=== PATIENT | female | born 1990 | race African-American/Black ===

== ENCOUNTER 2023-08-02 18:10 | Emergency (ER) | payer BC, OTHER ==
[~2023-08-02] VITALS: Ht 165.1 cm; Wt 91.0 kg
[2023-08-02 18:36] VITALS: BP 144/88; PULSE 91; RESP 18; TEMP 98.7; O2SAT 99
[2023-08-02 19:10] LABS: HEMATOCRIT. 32.9 % (36.0-48.0); HEMOGLOBIN. 10.4 g/dL (12.0-16.0); MEAN CORPUSCULAR HEMOGLOBIN 24.1 pg (28.0-32.0); MEAN CORPUSCULAR HGB CONC 31.7 g/dL (31.0-37.0); MEAN CORPUSCULAR VOLUME 76.2 fL (81.0-99.0); MEAN PLATELET VOLUME 7.4 fl (7.4-10.4); PLATELET 399 x1000/uL (130-400); RED BLOOD CELL COUNT 4.31 mill/uL (4.2-5.4); RED CELL DISTRIBUTION WIDTH 19.2 % (11.6-14.6); WHITE BLOOD COUNT 6.9 x1000/uL (4.5-11.0)
[2023-08-02 19:11] LABS: DIFFERENTIAL COMMENT 1
[2023-08-02 19:21] LABS: CHLORIDE 109 mEq/L (98-107); INDEX HEMOLYSI 1 (1-3); INDEX ICTERIC 1 (1-4); INDEX LIPEMIC 1 (1-3); POTASSIUM 3.5 mEq/L (3.5-5.1); SODIUM 137 mEq/L (136-145)
[2023-08-02 19:29] LABS: ALANINE AMINOTRANSFERASE 30 IU/L (13-61); ALBUMIN 3.4 g/dL (3.4-5.0); ASPARTATE AMINOTRANSFERASE 19 IU/L (15-37); BILIRUBIN TOTAL 0.4 mg/dL (0.1-1.0); CALCIUM 8.3 mg/dL (8.5-10.1); CARBON DIOXIDE 23 mEq/L (21-32); CREATININE 0.7 mg/dL (0.6-1.3); GLUCOSE 141 mg/dL (70-105); PROTEIN TOTAL 7.6 g/dL (6.0-8.3); UREA NITROGEN BLOOD 7 mg/dL (7-21)
[2023-08-02 20:44] LABS: PLATELET ESTIMATE NORMAL
[2023-08-02 20:45] LABS: ANISOCYTOSIS 1+; HYPOCHROMASIA 1+; MICROCYTOSIS 1+
== END 2023-08-02 20:47 | disposition home or self-care (01) ==
LOC: ER 18:10
DX: Q89.9 Congenital malformation, unspecified (principal); R73.9 Hyperglycemia, unspecified
CPT/HCPCS: 36415; 80053; 85025; 99283

== ENCOUNTER 2024-11-02 08:52 | Emergency (ER) | payer OTHER ==
[~2024-11-02] VITALS: Ht 165.1 cm; Wt 91.0 kg
[2024-11-02 08:56] VITALS: O2SAT 100
[2024-11-02] MEDS ORDERED: METH4TAB95 MT (10:18)
[2024-11-02] MEDS ORDERED: AZIT500T8 MT (10:18)
[2024-11-02 10:57] VITALS: BP 138/87; PULSE 18; RESP 18; TEMP 36.78072; O2SAT 98
== END 2024-11-02 10:58 | disposition home or self-care (01) ==
LOC: ER 08:52
DX: J32.9 Chronic sinusitis, unspecified (principal); E11.9 Type 2 diabetes mellitus without complications; Z20.822 Contact with and (suspected) exposure to COVID-19
CPT/HCPCS: 87426; 87804; 99283